=== PATIENT | female | born 1945 | race Caucasian/White ===

== ENCOUNTER → 2016-07-24 | Outpatient (CLI) | payer OTHER ==
--- NOTE | 2016-07-24 09:53 | MA ---
Screening Digital Mammogram With iCAD Analysis Clinical Indications: Routine screening. The patient has had a prior benign right breast biopsy. Technique: Standard cephalocaudal and mediolateral oblique projections were obtained. This examinatio n was processed by the iCAD computer aided detection system. Comparison: July 2015, May 2014, May 2013, May 2012, May 2011, May 2010, May 2009, May 2007. Breast density: Type C; Heterogeneously dense. Findings: CAD was reviewed. No masses, suspicious calcifications or other signs of malignancy are id entified. There has been no significant change in the appearance of either breast. Impression: Negative mammogram. BI-RADS 1. Recommendation: Routine mammographic screening in one year as long as physical examination is negativ [facility]. Dense breast parenchyma diminishes mammographic sensitivity. Negative mammography should not preclude additional workup of a clinically suspicious finding. The patient's information is entered into a reminder system with a target due date for her next mammo gram.
== END ==
LOC: CIMAGING 08:37
DX: Z12.31 Encounter for screening mammogram for malignant neoplasm of breast (principal)
CPT/HCPCS: G0202

== ENCOUNTER 2017-01-06 09:34 | Emergency (ER) | payer OTHER ==
[2017-01-06] MEDS ORDERED: ACETAMINOPHEN 325 MG TAB PO ONE (10:33)
--- NOTE | 2017-01-06 10:35 | EDPHY ---
H & P Stated Complaint: confused Time Seen by Provider: 01/06/17 10:18 HPI/ROS: This patient fell at home in her backyard when she stepped into a hole that her dog dog while playing with her dogs. She struck her occiput against grass and believe she was dazed thereafter. She is uncertain if she marcum LOC. However if she did she thinks it was very brief in that she called her neighbor to come assist her with something 10 minutes prior to the neighbor coming to the door and finding that the patient was a bit confused. She just struck her head in the backyard prior to answering the door pino. She reports now mild 1 or 2/10 occipital headache and her confusion has resolved. Her neighbor drove her in for evaluation. She denies any other complaints at this time with exception of mild left lateral neck discomfort that she feels is muscular pain. The incident occurred shortly prior to arrival. ROS: Constitutional: Patient felt well prior to mechanical fall caused he head injury. HEENT: No facial pain. No lacerations the head. Musculoskeletal: She denies any extremity pain. No midline neck or back pain. Neuro: No numbness tingling or focal weakness. No visual changes. Pulmonary: No chest wall pain or shortness of breath. Cardiovascular: No lightheadedness or heart palpitations. 10 point ROS is otherwise negative. Source: Patient Exam Limitations: No limitations - Personal History Current Tetanus Diphtheria and Acellular Pertussis (TDAP): Yes - Medical/Surgical History Hx Asthma: No Hx Chronic Respiratory Disease: No Hx Diabetes: No Hx Cardiac Disease: No Hx Renal Disease: No Hx Cirrhosis: No Hx Alcoholism: No Hx HIV/AIDS: No Hx Splenectomy or Spleen Trauma: No - Family History Significant Family History: No pertinent family hx - Social History Smoking Status: Never smoked Alcohol Use: Rarely Drug Use: None - Physical Exam Exam: Physical exam: Vital signs are normal General: Patient is in no acute distress. HEENT: Is no external evidence of trauma on exam except for minimal occipital tenderness without hematoma, laceration or abrasion. Nose atraumatic. Ears: Clear bilaterally with no hemotympanum. Oropharynx: No dental trauma or malocclusion. No intraoral lacerations. Eyes: Pupils are equal and reactive to light. Extraocular motions are intact. Optic fundi: Clear with no papilledema or hemorrhage. Neck: Trachea is midline with no stridor. The patient has no midline neck tenderness and retains a full range of motion without increase in pain. She does have left lateral muscular tenderness that reproduces her discomfort. Lungs: Clear to auscultation bilaterally Cardiac: Regular rate and rhythm no murmur gallop or rub. Chest: Nontender. Abdomen: Soft nontender no organomegaly Back: Nontender Extremities: Atraumatic Neuro: GCS of 15. Cranial nerves II through XII intact. 3 out of 3 five- minute memory is intact. No retrograde amnesia. No perseveration. Cerebellar exam is normal as judged by symmetric rapid hand movements bilaterally. No pronator drift. No sensory or motor deficits are appreciated. Initial differential diagnosis: Minor head injury, concussion with or without loss of consciousness. Doubt subdural hematoma Constitutional: Initial Vital Signs Temperature (C) 36.7 C 01/06/17 09:47 Heart Rate 71 01/06/17 09:47 Respiratory Rate 18 01/06/17 09:47 Blood Pressure 143/98 H 01/06/17 09:47 O2 Sat (%) 95 01/06/17 09:47 O2 Delivery Mode Room Air Allergies/Adverse Reactions: No Known Allergies Allergy (Unverified 01/06/17 09:49) Home Medications: Medication Instructions Recorded Aspirin 81mg (*) 01/06/17 CALCIUM 01/06/17 Metamucil 01/06/17 VITAMIN D 01/06/17 Zocor 01/06/17 Medical Decision Making ED Course/Re-evaluation: Course: Patient remained comfortable with a GCS of 15 throughout her stay here. Her findings are consistent with concussion but she has a normal exam here including 3/3 5 minutes memory and no significant findings that would suggest intracranial beat, bony injury or other complicating factors. Given her rapid improvement after minor head injury I do not think that she requires imaging at this time. I counseled her regarding this. I did suggest that a family member or friend stay with her for 24 hours since she lives alone. She said she will make arrangements for this. Patient understands the need to return to the emergency department if she develops increasing headache, onset of confusion or other concerns - Data Points Medications Given: Discontinued Medications Acetaminophen (Tylenol) 975 mg PO EDNOW ONE Stop: 01/06/17 10:34 Last Admin: 01/06/17 10:42 Dose: 975 mg Departure - Departure Disposition: Home, Routine, Self-Care Clinical Impression: Concussion Qualifiers: Encounter type: initial encounter Loss of consciousness presence/duration: with LOC of unspecified duration Qualified Code(s): S06.0X9A - Concussion with loss of consciousness of unspecified duration, initial encounter Neck muscle strain Qualifiers: Encounter type: initial encounter Qualified Code(s): S16.1XXA - Strain of muscle, fascia and tendon at neck level, initial encounter Condition: Good Instructions: Concussion (ED) Additional Instructions: Diagnosis: 1. Concussion 2. Neck muscle strain Plan: Tylenol for discomfort if needed Avoid vigorous activities until her headache resolved. No activities but she risk for head injury for 7 days after resolution of your symptoms. Return emergency department if he develops vomiting more than once, unbearable headache, confusion or other concerns I recommend that someone stay with you for the next 24 hours. Referrals: Salome Murray MD [Primary Care Provider] - As per Instructions
[2017-01-06 11:09] VITALS: BP 139/80; PULSE 70; RESP 16; TEMP 97.7; O2SAT 96
== END 2017-01-06 10:45 | disposition home or self-care (01) ==
LOC: CED 09:34
DX: S06.0X9A Concussion with loss of consciousness of unspecified duration, initial encounter (principal); S16.1XXA Strain of muscle, fascia and tendon at neck level, initial encounter; Z79.82 Long term (current) use of aspirin; W18.09XA Striking against other object with subsequent fall, initial encounter; Y92.009 Unspecified place in unspecified non-institutional (private) residence as the place of occurrence of the external cause

== ENCOUNTER → 2017-07-30 | Outpatient (CLI) | payer OTHER | LOC: CIMAGING 07-25 08:03 | PROVIDERS: ATTEND Family Medicine | DX: Z12.31 Encounter for screening mammogram for malignant neoplasm of breast (principal) ==

== ENCOUNTER → 2018-08-09 | Outpatient (CLI) | payer OTHER | LOC: FIMAGING 09:48 | PROVIDERS: ATTEND Family Medicine | DX: Z12.31 Encounter for screening mammogram for malignant neoplasm of breast (principal) ==